=== PATIENT | female | born 1965 | race Caucasian/White ===

== ENCOUNTER 2016-10-05 09:32 | Emergency (ER) | payer OTHER ==
[2016-10-05 10:05] VITALS: BP 119/74
[2016-10-05] MEDS ORDERED: TORADOL IM ONE (11:31)
[2016-10-05] MEDS ORDERED: DECADRON IV ONE (11:31)
--- NOTE | 2016-10-05 11:50 | Emergency Department Report ---
Upper Extremity - HPI Chief Complaint: Extremity Injury, Upper Stated Complaint: RIGHT HAND PAIN Time Seen by Provider: 10/05/16 11:23 Upper Extremity: Right Forearm, Right Wrist, Right Hand Occurred When: 1 Day Mechanism: Unsure Symptoms: Yes Pain with Movement, Yes Limited Range of Movement, Yes Swelling, No Deformity, No Numbness, No Weakness, No Bruising/Ecchymosis, No Laceration or Abrasion Other History: Patient comes in the ER today with complaints of right hand, right wrist, right forearm pain. Patient denies any obvious injury but does state that a few days ago she was doing a lot of work in the yard. Patient states it is very painful to move and that most of her pain seems to be at the base of the right thumb. Patient denies any chest pain, shortness of breath, upper arm pain or swelling. ED Review of Systems ROS: Stated complaint: RIGHT HAND PAIN Other details as noted in HPI Constitutional: denies: chills, fever Eyes: denies: eye pain, eye discharge, vision change ENT: denies: ear pain, throat pain Respiratory: denies: cough, shortness of breath, SOB with exertion, SOB at rest , wheezing Cardiovascular: denies: chest pain, palpitations Endocrine: no symptoms reported Gastrointestinal: denies: abdominal pain, nausea, diarrhea Genitourinary: denies: urgency, dysuria, discharge Musculoskeletal: joint swelling, arthralgia. denies: back pain Skin: denies: rash, lesions Neurological: denies: headache, weakness, paresthesias Psychiatric: denies: anxiety, depression Hematological/Lymphatic: denies: easy bleeding, easy bruising ED Past Medical Hx - Past Medical History Previous Medical History?: Yes Hx Diabetes: Yes (pre diabetic, non compliant with meds) - Surgical History Past Surgical History?: Yes Additional Surgical History: x 2 - Social History Smoking Status: Never Smoker Substance Use Type: Alcohol, Non Opiate Pain - Medications Home Medications: Home Medications Medication Instructions Recorded Confirmed Last Taken Type Cyclobenzaprine HCl [Flexeril 5 MG 5 mg PO TID PRN #15 tab 10/05/16 Unknown Rx TAB] predniSONE [Deltasone] 20 mg PO DAILY #18 tablet 10/05/16 Unknown Rx traMADol [Ultram] 50 mg PO Q4HR PRN #18 tablet 10/05/16 Unknown Rx Upper Extremity Exam - Exam General: Vital signs noted. No distress. Alert and acting appropriately. Head and Torso: No HEENT Abnormality, No Neck Tenderness, No Chest/Lungs Abnormality (clear breath sounds throughout all lung tobias, heart sounds normal ), No Abdominal Tenderness, No Back Tenderness Shoulder Exam: Yes Normal Range of Motion in Shoulder, No Shoulder Tenderness, No Clavicle Tenderness, No Shoulder Deformity, No AC Joint Tenderness Arm Exam: No Arm/Humerus Tenderness, No Arm Deformity Elbow: Yes Elbow Tenderness (right lateral epicondyle tenderness), No Normal Range of Motion in Elbow, No Elbow Deformity Forearm: No Forearm Tenderness, No Forearm Deformity, No Pain with Pronation, No Pain with Supination Wrist: Yes Wrist Tenderness (left wrist tenderness), Yes Snuffbox Tenderness, Yes Pain with Axial Thumb Compression, No Normal ROM in Wrist (Limited range of motion of wrist in all directions secondary to pain.), No Wrist Deformity Hand: Yes Hand Tenderness, Yes Digit Tenderness, No Hand Deformity, No Normal ROM in Digit(s) (Limited range of motion secondary to pain and swelling), No Digit(s) Deformity, No Tendon Dysfunction CMS Exam: Yes Normal Distal Pulses, Yes Normal Capillary Refill, Yes Normal Distal Sensation, No Broken Skin ED Course Vital Signs 10/05/16 10:01 Temperature 98.1 F Pulse Rate 74 Respiratory 20 Rate Blood Pressure 119/74 O2 Sat by Pulse 100 Oximetry ED Medical Decision Making - Medical Decision Making Patient is nontoxic and hemodynamically stable. Due to lack of any known mechanism of injury, I see no purpose for obtaining x-ray imaging at this time. Physical exam and history is more consistent with tendinitis. I believe patient may be having taken her veins tenosynovitis as the majority of her pain and swelling is located at the base of right thumb and extending into the forearm. Pain is worse with pronation and supination. Patient was placed in thumb spica splint as well as sling to limit range of motion at this time. Patient is given a sling as well to help limit use of her right arm. Patient was given Decadron 10 mg IM as well as Toradol 60 mg IM here in the ER to expedite recovery time. I will continue patient on short course of medications for inflammation as well as pain medications for symptomatic relief. I will refer patient to orthopedics for further evaluation if symptoms fail to resolve or worsen. Patient is in agreement with treatment plan the patient is stable for discharge. Critical care attestation.: If time is entered above; I have spent that time in minutes in the direct care of this critically ill patient, excluding procedure time. ED Disposition Clinical Impression: Right wrist pain, De Quervain's tenosynovitis, right Disposition: - TO HOME OR SELFCARE Is pt being admited?: No Does the pt Need Aspirin: No Condition: Good Instructions: De Quervain Disease (ED), Tenosynovitis (ED) Referrals: PRIMARY CAREMD [Primary Care Provider] - 3-5 Days JACKELINE DUMONT MD [Staff Physician] - 3-5 Days Time of Disposition: 12:00
== END 2016-10-05 12:15 | disposition home or self-care (01) ==
LOC: ED 09:32
DX: M65.4 Radial styloid tenosynovitis [de Quervain] (principal); E11.9 Type 2 diabetes mellitus without complications
CPT/HCPCS: 29125; 96372; 96374; 99283; J1100; J1885